=== PATIENT | female | born 1995 | race Caucasian/White ===

== ENCOUNTER 2016-09-16 12:31 | Emergency (ER) | payer MEDICAID ==
[~2016-09-16] VITALS: Wt 50.0 kg
[2016-09-16] MEDS ORDERED: ACETAMINOPHEN 500 MG TAB PO STA (13:22)
--- NOTE | 2016-09-16 13:25 | ERD ---
ER Documentation Chief Complaint Date/Time DATE: 09/16/16 TIME: 13:24 Chief Complaint VAG BLEEDING SENT BY CLINIC. MILD ABD PAIN. 12 WKS PREG. HPI 21-year-old female A0 approximately 12 weeks with vaginal bleeding and back pain was referred to the emergency room for further evaluation. She states that over the last 3 days she has had suprapubic pelvic cramping, bilateral lower back pain and has had some mild to moderate vaginal bleeding. She does not recall exactly when her last menstrual period was it was approximately the first week of May 2016. ROS All systems reviewed and are negative except as per history of present illness. Physical Exam Vitals Vital Signs Date Time Temp Pulse Resp B/P Pulse Ox O2 Delivery O2 Flow Rate FiO2 09/16/16 12:36 98.8 85 20 107/65 98 Physical Exam General: Well-developed, well-nourished. The patient appears in no acute distress. HEENT: Head is normocephalic, atraumatic. No scleral icterus. Neck: Supple. Nontender. Lungs: Clear to auscultation. Normal air movement. Heart: Regular rate and rhythm. S1 and S2 are normal. No murmurs, gallops, or rubs. Abdomen: Soft, suprapubic tenderness, no rebound pain, nondistended. Bowel sounds are normoactive. Extremities: No clubbing or cyanosis. Normal pulses. Moving extremities x 4. No weakness. Neurologic: Alert and oriented 3. No focal deficits. Skin: Normal turgor. No rash or lesions. Result Diagram: 09/16/16 1330 Results 24 hrs Laboratory Tests Test 09/16/16 12:20 09/16/16 13:30 Urine Bacteria FEW Urine Bilirubin NEGATIVE Urine Clarity SLIGHTLY CLOUDY Urine Color LT. YELLOW Urine Glucose NEGATIVE% Urine Hemoglobin 3+ Urine Ketones NEGATIVE Urine Leukocyte Esterase TRACE Urine Microscopic RBC >50/HPF Urine Microscopic WBC 0-2/HPF Urine Nitrite NEGATIVE Urine Specific [place] 1.010 Urine Squamous Epithelial Cells MANY Urine Total Protein TRACE Urine Urobilinogen 0.2 E.U./dL Urine pH 7.0 Basophils # 0.010^3/ul Basophils % 0.2% Beta HCG, Quantitative 1991.8mIU/ml Eosinophils # 0.210^3/ul Eosinophils % 2.0% Hematocrit 36.8% Hemoglobin 12.4g/dl Lymphocytes # 2.510^3/ul Lymphocytes % 27.5% Mean Corpuscular Hemoglobin 30.3pg Mean Corpuscular Hemoglobin Concent 33.7g/dl Mean Corpuscular Volume 90.0fl Mean Platelet Volume 9.4fl Monocytes # 0.510^3/ul Monocytes % 5.1% Neutrophils # 5.810^3/ul Neutrophils % 65.0% Nucleated Red Blood Cells # 0.010^3/ul Nucleated Red Blood Cells % 0.0/100WBC Platelet Count 51109^3/UL Red Blood Count 4.0910^6/ul Red Cell Distribution Width 11.6% White Blood Count 9.010^3/ul Current Medications Medications (Trade) Dose Ordered Sig/Quique Route PRN Reason Start Time Stop Time Status Last Admin Dose Admin Acetaminophen (Tylenol Tab) 500 mg ONCE STAT PO 09/16/16 13:22 09/16/16 13:23 DC 09/16/16 13:49 Procedures/MDM ED course: She was given Tylenol 500 mg for pain, labs and urine were obtained. PROCEDURE: US OB. CLINICAL INDICATION: Vaginal bleeding. TECHNIQUE: Multiple transabdominal and transvaginal sonographic images of the pelvis were obtained. COMPARISON: None. FINDINGS: The uterus is anteverted in position. There is a single enlarged and irregular shaped intrauterine gestational sac. Mean gestational sac diameter is 3.71 cm ( 9 weeks 0 days). A yolk sac is present and enlarged measuring approximately 17 mm. There is no embryonic pole. The cervix is closed. The right and left ovaries are normal in size and morphology. The right ovary measures 3.2 x 2.8 x 2.6 cm (11.7 cc). The left ovary measures 3.4 x 2.0 x 2.6 cm (9.2 cc). There are no adnexal masses. IMPRESSION: Single enlarged and irregular intrauterine gestational sac with with an enlarged internal yolk sac. There is no embryonic pole. Imaging appearance is most compatible with a failed early . RPTAT: HLST .Meme Nuñez MD, MD Date Time Electronically viewed and signed by .Meme Nuñez MD, on 09/16/2016 14:21 MDM: 21-year-old female comes in with vaginal bleeding, she comes in with a gestational sac as well as a yolk sac however no pole present that is suspicious for an early failed . No signs of an ectopic or adnexal masses. She states that she did get an ultrasound done several days ago at [facility] once and was told that she had an abnormal . I did explain to the patient that she does not need emergent D&C, that she may follow-up with her [employer] in the next several days for recheck. Departure Diagnosis: Primary Impression: Threatened Condition: NOE Wills PA-C Sep 16, 2016 13:25
[2016-09-16 14:05] LABS: ADD SCAN DIFF NO
[2016-09-16 14:09] LABS: BASOPHILS % 0.2 % (0.0-2.0); EOSINOPHILS # 0.2 10^3/ul (0.0-0.5); HEMATOCRIT 36.8 % (37.0-47.0); HEMOGLOBIN 12.4 g/dl (12.0-16.0); LYMPHOCYTES # 2.5 10^3/ul (0.8-2.9); LYMPHOCYTES % 27.5 % (18.0-55.0); MEAN CORPUSCULAR HEMOGLOBIN 30.3 pg (29.0-33.0); MEAN CORPUSCULAR HGB CONC 33.7 g/dl (32.0-37.0); MEAN PLATELET VOLUME 9.4 fl (7.4-10.4); MONOCYTE # 0.5 10^3/ul (0.3-0.9); MONOCYTES % 5.1 % (0.0-13.0); NEUTROPHIL # 5.8 10^3/ul (1.6-7.5); PLATELET COUNT 304 10^3/UL (140-415); RED BLOOD COUNT 4.09 10^6/ul (4.20-5.40); RED CELL DISTRIBUTION WIDTH 11.6 % (11.5-14.5)
--- NOTE | 2016-09-16 14:21 | RADRPT ---
PROCEDURE: US OB. CLINICAL INDICATION: Vaginal bleeding. TECHNIQUE: Multiple transabdominal and transvaginal sonographic images of the pelvis were obtained. COMPARISON: None. FINDINGS: The uterus is anteverted in position. There is a single enlarged and irregular shaped intrauterine gestational sac. Mean gestational sac diameter is 3.71 cm (9 weeks 0 days). A yolk sac is present an d enlarged measuring approximately 17 mm. There is no embryonic pole. The cervix is closed. The right and left ovaries are normal in size and morphology. The right ovary measures 3.2 x 2.8 x 2.6 cm (11.7 cc). The left ovary measures 3.4 x 2.0 x 2.6 cm (9.2 cc). There are no adnexal masses . IMPRESSION: Single enlarged and irregular intrauterine gestational sac with with an enlarged internal yolk sac. There is no embryonic pole. Imaging appearance is most compatible with a failed early . RPTAT: HLST .Meme Nuñez MD, MD Date Time Electronically viewed and signed by .Meme Nuñez MD, MD on 09/16/2016 14:21 .T/
[2016-09-16 14:53] LABS: ADD UMIC YES; URINE BILIRUBIN (Dip) NEGATIVE (NEGATIVE); URINE BLOOD (Dip) 3+ (NEGATIVE); URINE COLOR LT. YELLOW (YELLOW); URINE GLUCOSE (Dip) NEGATIVE (NEGATIVE); URINE KETONES (Dip) NEGATIVE (NEGATIVE); URINE LEUKOCYTE ESTERASE (Dip) TRACE (NEGATIVE); URINE NITRITE (Dip) NEGATIVE (NEGATIVE); URINE TOTAL PROTEIN (Dip) TRACE (NEGATIVE); URINE UROBILINOGEN (Dip) 0.2 E.U./dL (0.1-1.0)
[2016-09-16 15:35] LABS: BACTERIA,URINE FEW; SQUAMOUS EPITHELIAL CELL,UR MANY; URINE RBCS >50 /HPF (0)
[2016-09-16] MEDS ORDERED: HYDROCODONE/APAP (5/325) TAB PO ONE (16:00)
== END 2016-09-16 16:07 | disposition home or self-care (01) ==
LOC: FTE 12:31
DX: O20.0 Threatened abortion (principal)
CPT/HCPCS: 36415; 76801; 81001; 84702; 85025; 86900; 86901; Z7502; Z7610; 81003